=== PATIENT | male | born 1970 | race African-American/Black ===

== ENCOUNTER 2018-12-18 19:44 | Emergency (ER) | payer SELFPAY ==
[~2018-12-18] VITALS: Ht 182.9 cm; Wt 103.9 kg
[2018-12-18 20:02] VITALS: Ht 182.9 cm; Wt 103.9 kg
[2018-12-18 21:02] LABS: CALCIUM 8.7 mg/dL (8.5-10.1); CARBON DIOXIDE 23.6 mmol/L (21-32); CHLORIDE SERUM 106 mmol/L (98-107); CREATININE SERUM 1.1 mg/dL (0.7-1.3); GFR1 > 60 mL/min; GLUCOSE SERUM 183 mg/dL (74-106); POTASSIUM SERUM 3.9 mmol/L (3.5-5.1); SODIUM SERUM 140 mmol/L (136-145)
[2018-12-18 21:10] LABS: ALBUMIN 3.4 g/dL (3.4-5.0); ALKALINE PHOSPHATASE 82 U/L (46-116); ALT/SGPT 76 U/L (16-63); AST/SGOT 42 U/L (15-37); BILIRUBIN TOTAL 0.3 mg/dL (0.20-1.00); TOTAL PROTEIN, SERUM 7.8 g/dL (6.4-8.2)
[2018-12-18 21:28] LABS: BASOPHIL % 0.6 % (0-2); PLATELET COUNT 215 x10^3mcL (130-400); RED CELL DISTRIBUTION WIDTH 13.9 % (11.5-14.5)
[2018-12-18 22:38] LABS: UA SPECIFIC GRAVITY 1.025 (1.005-1.035); microscopic required? YES; urine erythrocyte 1+ (NEGATIVE)
[2018-12-18 22:40] VITALS: BP 148/88
== END 2018-12-19 00:24 | disposition home or self-care (01) ==
LOC: ED 19:44
PROVIDERS: Emergency Medicine
DX: R05 Cough (principal); R55 Syncope and collapse; R30.9 Painful micturition, unspecified; F17.210 Nicotine dependence, cigarettes, uncomplicated; Z87.19 Personal history of other diseases of the digestive system
CPT/HCPCS: 36415; 87491; 87591; 99406; J0696